=== PATIENT | female | born 1990 | race Caucasian/White ===

== ENCOUNTER 2017-05-07 18:52 | Emergency (ER) | payer OTHER ==
[~2017-05-07] VITALS: Ht 157.5 cm; Wt 72.1 kg
[~2017-05-07 18:52] MED LIST: AMOXICILLIN500 M1 PO; CIPRO500 MG PO; FLUCONAZOLE100 MG PO; INTESTINEX1 CA1 PO; PERCOCET 5/3251 TAB PO; PRENATABS RX TA1 TAB; ULTRACET PO; ZANTAC150 M3 PO
== END 2017-05-08 00:06 | disposition home or self-care (01) ==
LOC: ER 18:52
DX: N39.0 Urinary tract infection, site not specified (principal)

== ENCOUNTER → 2017-08-20 | Emergency (ER) | payer OTHER ==
[~2017-08-20] VITALS: Ht 154.9 cm; Wt 72.6 kg
[~2017-08-20] MED LIST changes: +LEVSIN/SL0.125 MG SL; +PEPCID40 MG PO; +ZOFRAN4 MG PO
== END | disposition home or self-care (01) ==
LOC: ER 00:27
DX: R10.11 Right upper quadrant pain (principal); R10.13 Epigastric pain

== ENCOUNTER → 2017-12-18 | Emergency (ER) | payer OTHER ==
[~2017-12-18] VITALS: Ht 154.9 cm; Wt 72.6 kg
== END | disposition left against medical advice (07) ==
LOC: ER 11:02
DX: Z53.20 Procedure and treatment not carried out because of patient's decision for unspecified reasons (principal)

== ENCOUNTER 2018-04-08 02:56 | Emergency (ER) | payer OTHER ==
[~2018-04-08] VITALS: Ht 157.5 cm; Wt 71.7 kg
[2018-04-08] MEDS ORDERED: ZYNCOF 20-400120 ML PO (08:25)
[2018-04-08] MEDS ORDERED: GILPHEX TR TAB1 EACH PO (08:25)
== END 2018-04-08 08:34 | disposition home or self-care (01) ==
LOC: ER 02:56
DX: J06.9 Acute upper respiratory infection, unspecified (principal)